=== PATIENT | female | born 1990 ===

== ENCOUNTER 2022-04-30 13:14 | Emergency (ER) | payer MEDICAID ==
[~2022-04-30] VITALS: Ht 152.4 cm; Wt 72.7 kg
[2022-04-30 14:09] VITALS: BP 132/94
[2022-04-30] MEDS ORDERED: ONDA4TAB12 PO (18:54)
== END 2022-04-30 19:03 | disposition home or self-care (01) ==
LOC: ER 13:14
DX: F11.23 Opioid dependence with withdrawal (principal); F17.200 Nicotine dependence, unspecified, uncomplicated; F15.10 Other stimulant abuse, uncomplicated; F41.9 Anxiety disorder, unspecified
CPT/HCPCS: 99283